=== PATIENT | female | born 1950 | race Caucasian/White ===

== ENCOUNTER 2017-11-30 19:10 | Emergency (ER) | payer MEDICARE, OTHER ==
[2017-11-30] MEDS ORDERED: ASPIRIN 81 MG TABLET, CHEWABLE PO ONE (20:10)
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
[2017-11-30] MEDS ORDERED: LIDOCAINE 5% (700 MG) TRANSDERMAL ADH..PATCH TP ONE (20:21)
[2017-11-30 20:41] LABS: ABSOLUTE BASOPHILS # (AUTO) 0.1 10^3/uL (0.0-0.2); ABSOLUTE EOSINOPHILS # (AUTO) 0.6 10^3/uL (0.0-0.6); ABSOLUTE LYMPHOCYTES (AUTO) 2.7 10^3/uL (0.5-4.7); BASOPHILS % (AUTO) 0.7 % (0-2); EOSINOPHILS % (AUTO) 5.4 % (0-6); HEMATOCRIT 40.3 % (36.0-47.0); HEMOGLOBIN 13.5 g/dL (12.0-15.5); LYMPHOCYTES % (AUTO) 23.5 % (13-45); MEAN CORPUSCULAR HEMOGLOBIN 31.1 pg (27.0-33.4); MEAN CORPUSCULAR HGB CONC 33.6 g/dL (32.0-36.0); MEAN CORPUSCULAR VOLUME 93 fl (80-97); MONOCYTES % (AUTO) 8.6 % (3-13); PLATELET COUNT 280 10^3/uL (150-450); RED BLOOD COUNT 4.35 10^6/uL (3.72-5.28); RED CELL DISTRIBUTION WIDTH 13.9 % (11.5-14.0); SEGMENTED NEUTROPHILS % (AUTO) 61.8 % (42-78); TOTAL CELLS COUNTED % (AUTO) 100 %; WHITE BLOOD COUNT 11.3 10^3/uL (4.0-10.5)
--- NOTE | 2017-11-30 20:54 | RADIOLOGY REPORT (SQ) ---
EXAM DESCRIPTION: CHEST SINGLE VIEW COMPLETED DATE/TIME: 11/30/2017 8:42 pm REASON FOR STUDY: chest wall pain COMPARISON: None. EXAM PARAMETERS: NUMBER OF VIEWS: One view. TECHNIQUE: Single frontal radiographic view of the chest acquired. RADIATION DOSE: NA LIMITATIONS: Suboptimal exposure. FINDINGS: LUNGS AND PLEURA: No opacities, masses or pneumothorax. No pleural effusion. MEDIASTINUM AND HILAR STRUCTURES: No masses. Contour normal. HEART AND VASCULAR STRUCTURES: Heart normal in size. Normal vasculature. BONES: No acute findings. HARDWARE: None in the chest. OTHER: No other significant finding. IMPRESSION: NO ACUTE RADIOGRAPHIC FINDING IN THE CHEST. TECHNICAL DOCUMENTATION: JOB ID: [id number] [employer]- All Rights Reserved Reading location - IP/workstation name: [email or web address]
[2017-11-30 20:59] LABS: INTERNATIONAL RATION (INR) 0.88; PROTHROMBIN TIME 12.6 SEC (11.4-15.4)
[2017-11-30 21:04] LABS: ALANINE AMINOTRANSFERASE 31 U/L (9-52); ALBUMIN 4.1 g/dL (3.5-5.0); ALKALINE PHOSPHATASE 104 U/L (38-126); ANION GAP 9 (5-19); ASPARTATE AMINO TRANSFERASE 23 U/L (14-36); BILIRUBIN,DIRECT 0.1 mg/dL (0.0-0.4); BILIRUBIN,TOTAL 0.2 mg/dL (0.2-1.3); BLOOD UREA NITROGEN 16 mg/dL (7-20); CALCIUM 9.4 mg/dL (8.4-10.2); CARBON DIOXIDE 31 mmol/L (22-30); CHLORIDE 100 mmol/L (98-107); CREATINE KINASE 65 U/L (30-135); GLUCOSE 95 mg/dL (75-110); SODIUM 139.8 mmol/L (137-145); TOTAL PROTEIN 6.4 g/dL (6.3-8.2)
[2017-11-30 21:16] LABS: CREATINE KINASE MB 0.65 ng/mL (<4.55)
[2017-11-30 21:17] LABS: TROPONIN I < 0.012 ng/mL
--- NOTE | 2017-11-30 22:02 | EKG REPORT ---
SEVERITY:- NORMAL ECG - SINUS RHYTHM : Confirmed by: Dov Ramos MD 30-Nov-2017 22:01:47
--- NOTE | 2017-11-30 22:20 | RADIOLOGY REPORT (SQ) ---
EXAM DESCRIPTION: CTA CHEST COMPLETED DATE/TIME: 11/30/2017 9:54 pm REASON FOR STUDY: chest pain, worse with inspiration, r/o PE COMPARISON: 11/30/2017 TECHNIQUE: CT scan of the chest performed using helical scanning technique with dynamic intravenous contrast injection. Images reviewed with lung, soft tissue and bone windows. Reconstructed coronal and sagittal MPR images reviewed. Additional 3 dimensional post-processing performed to develop Maximal Intensity Projection images ([place] P). All images stored on PACS. All CT scanners at this facility use dose modulation, iterative reconstruction, and/or weight based d osing when appropriate to reduce radiation dose to as low as reasonably achievable (ALARA). [facility]: Dose Right [facility]: CareDose [facility]: Dose Right [facility]: Teradose 4D [facility]: [employer] CONTRAST TYPE AND DOSE: contrast/concentration: Isovue 370.00 mg/ml; Total Contrast Delivered: 81.0 ml; Total Saline Delivered: 110.0 ml Contrast bolus optimized for the pulmonary arteries. Not diagnostic for the aorta. RENAL FUNCTION: BUN 16; creatinine 0.89 RADIATION DOSE: CT Rad equipment meets quality standard of care and radiation dose reduction techniq ues were employed. CTDIvol: 13.2 - 34.5 mGy. DLP: 1388 mGy-cm. . LIMITATIONS: None. FINDINGS: LUNGS AND PLEURA: Bibasilar atelectasis. No masses, infiltrates, pneumothorax. No pleura l effusions, calcifications. AORTA AND GREAT VESSELS: No aneurysm. Contrast bolus not optimized for the aorta. HEART: No pericardial effusion. Moderate to marked coronary artery calcifications. PULMONARY ARTERIES: No emboli visualized in the main pulmonary arteries or the segmental branches. HILAR AND MEDIASTINAL STRUCTURES: No identified masses or abnormal nodes. HARDWARE: None in the chest. UPPER ABDOMEN: No significant findings. Limited exam. THYROID AND OTHER SOFT TISSUES: No masses. No adenopathy. BONES: No acute or significant finding. 3D MIPS: Confirm above findings. OTHER: No other significant finding. IMPRESSION: NORMAL CTA OF THE CHEST. NO PULMONARY EMBOLI. COMMENT: Quality ID # [id number]: Final reports with documentation of one or more dose reduction techniques (e.g., Automated exposure control, adjustment of the mA and/or kV according to patient size, use of iterative reconstruction technique) TECHNICAL DOCUMENTATION: JOB ID: [id number]- All Rights Reserved Reading location - IP/workstation name: [email or web address]
[2017-11-30] MEDS ORDERED: ACETAMINOPHEN 325 MG TABLET PO ONE (22:38)
[2017-11-30 22:58] VITALS: BP 150/76
== END 2017-11-30 22:57 | disposition home or self-care (01) ==
LOC: ER 19:10
DX: R07.89 Other chest pain (principal); J98.11 Atelectasis; R05 Cough; R09.89 Other specified symptoms and signs involving the circulatory and respiratory systems; I10 Essential (primary) hypertension; I25.2 Old myocardial infarction; Z95.5 Presence of coronary angioplasty implant and graft; J45.909 Unspecified asthma, uncomplicated; Z88.5 Allergy status to narcotic agent; Z88.8 Allergy status to other drugs, medicaments and biological substances
CPT/HCPCS: 93005; 99285; 36415; 82553; 82550; 85025; 85610; 80053; 84484; 71045; 71275; 93010; A9270 ×2

== ENCOUNTER 2018-06-08 12:15 | Emergency (ER) | payer MEDICARE, OTHER ==
[2018-06-08] MEDS ORDERED: ACETAMINOPHEN 325 MG TABLET PO ONE (13:28)
--- NOTE | 2018-06-08 13:29 | ER Document Report ---
HPI - HPI Patient complains to provider of: Low back pain Onset/Duration: Persistent Quality of pain: Achy Pain Level: 5 Context: Patient states that she got into a bathtub 2 weeks ago in which it was a clawfoot bathtub and the feet came off. Patient states that the bathtub fell to the floor and she fell in the tub and felt a pop in her lower back. Patient did see her primary doctor for this issue 4 days ago but she has had persistent pain and wanted to be reevaluated. Patient denies any radiculopathy or paresthesia. Patient states that her pain is worse in the morning and at night when she attempts to sleep. Patient states through the day after she has been up and moving about her pain is manageable with [id number] medications. Associated Symptoms: Other - Low back pain. denies: Fever Exacerbated by: Movement Relieved by: Denies Similar symptoms previously: No Recently seen / treated by doctor: Yes - ROS ROS below otherwise negative: Yes Systems Reviewed and Negative: Yes All other systems reviewed and negative - CONSTITUTIONAL Constitutional: DENIES: Fever - NEURO Neurology: DENIES: Headache, Weakness - GASTROINTESTINAL Gastrointestinal: DENIES: Patient vomiting - MUSCULOSKELETAL Musculoskeletal: REPORTS: Back Pain. DENIES: Extremity pain - DERM Skin Color: Normal Skin Problems: None Past Medical History - General Information source: Patient - Social History Smoking Status: Never Smoker Family History: Reviewed & Not Pertinent Patient has suicidal ideation: No Patient has homicidal ideation: No - Past Medical History Cardiac Medical History: Reports: Hx Congestive Heart Failure, Hx Hypertension Pulmonary Medical History: Reports: Hx Asthma Renal/ Medical History: Denies: Hx Peritoneal Dialysis Past Surgical History: Reports: Hx Cardiac Surgery - Stent, Hx Gynecologic Surgery - opherectomy, ectopic , Hx Orthopedic Surgery - left knee Vertical Provider Document - CONSTITUTIONAL Agree With Documented VS: Yes Exam Limitations: No Limitations General Appearance: WD/WN, No Apparent Distress Notes: PHYSICAL EXAMINATION: GENERAL: Well-appearing, well-nourished and in no acute distress. HEAD: Atraumatic, normocephalic. EYES: sclera clear, anicteric, conjunctiva are normal. ENT: nares patent, Moist mucous membranes. NECK: Normal range of motion, supple no lymphadenopathy LUNGS: respirations unlabored HEART: Regular rate and rhythm without murmurs EXTREMITIES: Normal range of motion, no pitting or edema. No cyanosis. Gait normal, pt ambulates without difficulty BACK: Lumbar paraspinal tenderness, no midline tenderness, no deformities or step-offs. No CVA tenderness. NEUROLOGICAL: Cranial nerves grossly intact. Normal speech, normal gait. No saddle anesthesia. No foot drop PSYCH: Normal mood, normal affect. SKIN: Warm, Dry, normal turgor, erythematous rash to sacral area in a plaque- like pattern - INFECTION CONTROL TRAVEL OUTSIDE OF THE [place] IN LAST 30 DAYS: No Course - Re-evaluation Re-evalutation: 06/08/18 14:55 The patient presents with low back pain without signs of spinal cord compression , cauda equina syndrome, infection, aneurysm, or other serious etiology. The patient is neurologically intact. Given the extremely risk of these diagnoses further testing and evaluation for these possibilities does not appear to be indicated at this time. Patient has been instructed to return if the symptoms worsen or change in any way. - Vital Signs Vital signs: Temp Pulse Resp BP Pulse Ox 98.8 F 75 14 168/73 H 97 06/08/18 12:20 06/08/18 12:20 06/08/18 12:20 06/08/18 12:20 06/08/18 12:20 - Diagnostic Test Radiology reviewed: Reports reviewed Discharge - Discharge Clinical Impression: Low back pain Qualifiers: Chronicity: unspecified Back pain laterality: unspecified Sciatica presence: unspecified whether sciatica present Qualified Code(s): M54.5 - Low back pain Condition: Stable Disposition: HOME, SELF-CARE Instructions: Ice Packs ([facility]), Low Back Pain ([facility]), Ultram ([facility]) Additional Instructions: Return immediately for any new or worsening symptoms Followup with your primary care provider, call tomorrow to make a followup appointment Prescriptions: Tramadol HCl [Ultram 50 mg Tablet] 50 mg PO ASDIR PRN #20 tablet PRN Reason: Referrals: CHENTE CRUMP MD [NO LOCAL MD] - Follow up as needed
--- NOTE | 2018-06-08 14:20 | RADIOLOGY REPORT (SQ) ---
EXAM DESCRIPTION: PELVIS AP COMPLETED DATE/TIME: 06/08/2018 2:08 pm REASON FOR STUDY: fall, low back, pelvic pain COMPARISON: Lumbar spine films same date NUMBER OF VIEWS: One view TECHNIQUE: AP Pelvis LIMITATIONS: None. FINDINGS: MINERALIZATION: Normal. HIPS: No acute fracture or dislocation. No worrisome bone lesions. PELVIS AND SACRUM: No acute fracture or dislocation. No worrisome bone lesions. PUBIS AND ISCHIUM: No acute fracture. LOWER LUMBAR SPINE: Bilateral facet arthropathy at L4-5 and L5-S1 SOFT TISSUES: No findings. OTHER: No other significant finding. IMPRESSION: No acute bony findings in the pelvis. TECHNICAL DOCUMENTATION: JOB ID: [id number] [employer]- All Rights Reserved Reading location - IP/workstation name: [email or web address]
--- NOTE | 2018-06-08 14:21 | RADIOLOGY REPORT (SQ) ---
EXAM DESCRIPTION: L SPINE WHOLE COMPLETED DATE/TIME: 06/08/2018 2:08 pm REASON FOR STUDY: fall, low back, pelvic pain COMPARISON: AP pelvis same date NUMBER OF VIEWS: Five views including obliques. TECHNIQUE: AP, lateral, oblique, and sacral radiographic images acquired of the lumbar spine. LIMITATIONS: None. FINDINGS: MINERALIZATION: Normal. SEGMENTATION: Normal. No transitional anatomy. ALIGNMENT: Grade 1 anterolisthesis of L5 over S1, chronic in appearance VERTEBRAE: Maintained height. No fracture or worrisome bone lesion. DISCS: High-grade disc space loss of height at L5-S1 POSTERIOR ELEMENTS: Bilateral spondylolysis at L5. Bulky bilateral facet arthropathy at L3-4, L4-5, and L5-S1 HARDWARE: Clips right upper quadrant post cholecystectomy PARASPINAL SOFT TISSUES: Normal. PELVIS: Not in the field of view. SI joints unremarkable. OTHER: No other significant finding. IMPRESSION: Advanced degenerative changes at L5-S1 with bilateral spondylolysis, grade 1 listhesis, and disc space loss of height. Lower lumbar facet arthropathy from L3-4 through L5-S1 TECHNICAL DOCUMENTATION: JOB ID: [id number] [employer]- All Rights Reserved Reading location - IP/workstation name: [email or web address]
[2018-06-08 15:03] VITALS: BP 137/93
== END 2018-06-08 15:03 | disposition home or self-care (01) ==
LOC: ER 12:15
DX: I50.9 Heart failure, unspecified (principal); I11.0 Hypertensive heart disease with heart failure
CPT/HCPCS: 99283; 72110; 72170; A9270

== ENCOUNTER → 2018-06-13 | Outpatient (CLI) | payer MEDICARE, OTHER ==
--- NOTE | 2018-06-13 16:33 | RADIOLOGY REPORT (SQ) ---
EXAM DESCRIPTION: CT LUMBAR SPINE WITHOUT COMPLETED DATE/TIME: 06/13/2018 3:59 pm REASON FOR STUDY: LOW BACK PAIN M54.5 LOW BACK PAIN M43.07 SPONDYLOLYSIS, LUMBOSACRAL REGION M47.8 17 SPONDYLS W/O MYELOPATHY OR RADICULOPATHY, LUMBOSACR COMPARISON: Lumbar spine films 06/08/2018 TECHNIQUE: Axial images acquired through the lumbar spine without intravenous contrast. Images revi ewed with lung, soft tissue and bone windows. Reconstructed coronal and sagittal MPR images reviewed . All images stored on PACS. All CT scanners at this facility use dose modulation, iterative reconstruction, and/or weight based d osing when appropriate to reduce radiation dose to as low as reasonably achievable (ALARA). [facility]: Dose Right [facility]: CareDose [facility]: Dose Right [facility]: Teradose 4D [facility]: [employer] RADIATION DOSE: CT Rad equipment meets quality standard of care and radiation dose reduction techniq ues were employed. CTDIvol: 28.6 mGy. DLP: 840 mGy-cm. mGy. LIMITATIONS: None. FINDINGS: SEGMENTATION: Normal. No transitional anatomy. ALIGNMENT: 25% anterolisthesis of L5 over S1 VERTEBRAL BODIES: 25% upper endplate compression at L4, likely chronic given the upper endplate bony sclerosis DISCS: The T11-12 level is unremarkable. At T12-L1, minimal posterior disc bulging is present withou t significant central or foraminal encroachment. At L1-2, mild diffuse posterior disc bulge and bony spurring and mild facet and ligament hypertrophy cause borderline central canal narrowing. Mild bilateral inferior foraminal narrowing without exitin g L1 nerve root impingement. At L2-3, mild posterior disc bulging and moderate bilateral facet and ligament hypertrophy causes bor derline central canal narrowing. There is mild bilateral inferior foraminal narrowing without exitin g L2 nerve root impingement. At L3-4, broad diffuse posterior disc bulge is present with moderate bilateral facet and ligament hyp ertrophy. Mild central canal stenosis with flattening of the thecal sac into a triangular shape. Mi ld to moderate right and mild left foraminal narrowing without definite exiting L3 nerve root impinge ment. At L4-5, mild posterior disc bulging and mild facet and ligament hypertrophy are present without cent ral stenosis. Mild bilateral foraminal narrowing without exiting L4 nerve root impingement. At L5-S1 there is bilateral spondylolysis and 25% anterolisthesis of L5 over S1. No central stenosis . Marked right foraminal narrowing with effacement of the fat around the exiting right L5 nerve root . [id number]-[id number] left L5-S1 foraminal narrowing with partial effacement of the fat around the ex iting left L5 nerve root. PEDICLES, TRANSVERSE PROCESSES: Bilateral L5 spondylolysis. Multilevel facet arthropathy FACETS, POSTERIOR ELEMENTS: Multilevel facet arthropathy. HARDWARE: None in the spine. VISUALIZED RIBS: No fractures. SOFT TISSUES: No significant or acute finding in adjacent soft tissues. OTHER: No other significant finding. IMPRESSION: Subacute to chronic appearing upper endplate compression at L4 Bilateral spondylolysis at L5 with grade 1 anterolisthesis of L5 over S1. Significant bilateral fora deshawn narrowing at this level right greater than left TECHNICAL DOCUMENTATION: JOB ID: [id number] Quality ID # [id number]: Final reports with documentation of one or more dose reduction techniques (e.g., Au tomated exposure control, adjustment of the mA and/or kV according to patient size, use of iterative reconstruction technique) 2010 [employer]- All Rights Reserved Reading location - IP/workstation name: [email or web address]
== END ==
LOC: RAD 15:42
PROVIDERS: ATTEND Family Medicine Geriatric Medicine
DX: M54.5 Low back pain (principal); M43.07 Spondylolysis, lumbosacral region; M47.817 Spondylosis without myelopathy or radiculopathy, lumbosacral region
CPT/HCPCS: 72131

== ENCOUNTER → 2018-08-15 | Outpatient (CLI) | payer MEDICARE, OTHER ==
[2018-08-15 11:59] LABS: ABSOLUTE BASOPHILS # (AUTO) 0.1 10^3/uL (0.0-0.2); ABSOLUTE EOSINOPHILS # (AUTO) 0.6 10^3/uL (0.0-0.6); ABSOLUTE LYMPHOCYTES (AUTO) 2.3 10^3/uL (0.5-4.7); ABSOLUTE MONOCYTES (AUTO) 0.5 10^3/uL (0.1-1.4); ABSOLUTE NEUT (AUTO) 3.2 10^3/uL (1.7-8.2); BASOPHILS % (AUTO) 1.1 % (0-2); EOSINOPHILS % (AUTO) 9.4 % (0-6); HEMATOCRIT 41.3 % (36.0-47.0); HEMOGLOBIN 14.2 g/dL (12.0-15.5); LYMPHOCYTES % (AUTO) 34.1 % (13-45); MEAN CORPUSCULAR HEMOGLOBIN 32.3 pg (27.0-33.4); MEAN CORPUSCULAR HGB CONC 34.3 g/dL (32.0-36.0); MEAN CORPUSCULAR VOLUME 94 fl (80-97); MONOCYTES % (AUTO) 7.4 % (3-13); PLATELET COUNT 276 10^3/uL (150-450); RED BLOOD COUNT 4.38 10^6/uL (3.72-5.28); RED CELL DISTRIBUTION WIDTH 13.9 % (11.5-14.0); TOTAL CELLS COUNTED % (AUTO) 100 %; WHITE BLOOD COUNT 6.7 10^3/uL (4.0-10.5)
[2018-08-15 12:21] LABS: ALANINE AMINOTRANSFERASE 18 U/L (9-52); ALBUMIN 3.9 g/dL (3.5-5.0); ALKALINE PHOSPHATASE 100 U/L (38-126); ANION GAP 11 (5-19); ASPARTATE AMINO TRANSFERASE 22 U/L (14-36); BILIRUBIN,DIRECT 0.1 mg/dL (0.0-0.4); BILIRUBIN,TOTAL 0.6 mg/dL (0.2-1.3); BLOOD UREA NITROGEN 18 mg/dL (7-20); CALCIUM 9.5 mg/dL (8.4-10.2); CARBON DIOXIDE 29 mmol/L (22-30); CHLORIDE 101 mmol/L (98-107); CHOLESTEROL 241.55 mg/dL (0-200); GLUCOSE 100 mg/dL (75-110); SODIUM 140.8 mmol/L (137-145); TOTAL PROTEIN 6.5 g/dL (6.3-8.2); TRIGLYCERIDES 138 mg/dL (<150)
[2018-08-15 12:32] LABS: DIRECT LDL 164 mg/dL (<100)
== END ==
LOC: OD 10:59
PROVIDERS: ATTEND Family Medicine Geriatric Medicine
DX: E03.9 Hypothyroidism, unspecified (principal); E78.5 Hyperlipidemia, unspecified; E87.6 Hypokalemia; M54.5 Low back pain; Z79.899 Other long term (current) drug therapy
CPT/HCPCS: 36415; 80053; 80061; 83735; 84443; 85025; 86141

== ENCOUNTER → 2018-08-28 | Outpatient (CLI) | payer MEDICARE, OTHER ==
--- NOTE | 2018-08-28 11:26 | WOMENS IMAGING REPORT ---
EXAM DESCRIPTION: 3D SCREENING MAMMO BILAT COMPLETED DATE/TIME: 08/28/2018 11:02 am REASON FOR STUDY: SCREENING MAMMO Z12.31 ENCNTR SCREEN MAMMOGRAM FOR MALIGNANT NEOPLASM OF AFIA COMPARISON: None. TECHNIQUE: Standard craniocaudal and mediolateral oblique views of each breast recorded using digita l acquisition and breast tomosynthesis. LIMITATIONS: None. FINDINGS: No masses, calcifications or architectural distortion. No areas of suspicion. Read with the assistance of CAD. .[facility] - R2 Cenova Version 1.3 .[facility] Imaging - R2 Cenova Version 1.3 .[facility] - R2 Cenova Version 2.4 .[facility] [place] R2 Cenova Version 2.4 .[facility] - R2 Buff Wheel Fabricator Version 9.2 IMPRESSION: NORMAL MAMMOGRAM. BIRADS 1. BREAST DENSITY: b. There are scattered areas of fibroglandular density. BIRAD: 1 NEGATIVE RECOMMENDATION: ROUTINE SCREENING COMMENT: The patient has been notified of the results by letter per SA requirements. Additional no tification policies are in place for contacting patient with suspicious or incomplete findings. Quality ID #225: The [place] [employer] recommends an annual screening mammogram for women aged 40 years or over. This facility utilizes a reminder system to ensure that all patients receive reminder letters, and/or direct phone calls for appointments. This includes reminders for routine scr eening mammograms, diagnostic mammograms, or other Breast Imaging Interventions when appropriate. Th is patient will be placed in the appropriate reminder system. The [place] [employer] (ACR) has developed recommendations for screening MRI of the breast s in certain patient populations, to be used in conjunction with mammography. Breast MRI surveillanc e may be appropriate for women with more than 20% lifetime risk of developing breast cancer as deter mined by genetic testing, significant family history of the disease, or history of mantle radiation f or Hodgkins Disease. ACR Practice Guidelines 2008. DBT Technology DBT is a type of tomographic mammography. With conventional mammography, overlapping breast tissue ma y make lesions difficult to detect, even with good compression. DBT uses an x-ray tube that rotates a round the breast, taking images at different angles. These images are then combined to create thin sl ices of the breast that the radiologist can view as a 3D reconstruction. The [employer] unit can perform full-field digital mammograms (2D imaging); or DBT (3D imaging); or both, in a combination mode that quickly performs both the mammogram and the tomosynthesis scan while the breast is still compressed. PQRS 6045F: Fluoroscopic imaging is not utilized for breast tomosynthesis. TECHNICAL DOCUMENTATION: FINDING NUMBER: (1) ASSESSMENT: (1) JOB ID: [id number] [employer]- All Rights Reserved Reading location - IP/workstation name: [facility]
== END ==
LOC: WI 10:04
PROVIDERS: ATTEND Family Medicine
DX: Z12.31 Encounter for screening mammogram for malignant neoplasm of breast (principal)
CPT/HCPCS: 77063; 77067

== ENCOUNTER → 2018-12-12 | Outpatient (CLI) | payer MEDICARE, OTHER ==
[2018-12-12 11:25] LABS: ABSOLUTE BASOPHILS # (AUTO) 0.1 10^3/uL (0.0-0.2); ABSOLUTE EOSINOPHILS # (AUTO) 0.7 10^3/uL (0.0-0.6); ABSOLUTE LYMPHOCYTES (AUTO) 2.5 10^3/uL (0.5-4.7); ABSOLUTE MONOCYTES (AUTO) 0.6 10^3/uL (0.1-1.4); ABSOLUTE NEUT (AUTO) 3.2 10^3/uL (1.7-8.2); BASOPHILS % (AUTO) 1.2 % (0-2); EOSINOPHILS % (AUTO) 9.9 % (0-6); HEMATOCRIT 42.6 % (36.0-47.0); HEMOGLOBIN 14.4 g/dL (12.0-15.5); LYMPHOCYTES % (AUTO) 35.3 % (13-45); MEAN CORPUSCULAR HEMOGLOBIN 31.7 pg (27.0-33.4); MEAN CORPUSCULAR HGB CONC 33.7 g/dL (32.0-36.0); MEAN CORPUSCULAR VOLUME 94 fl (80-97); MONOCYTES % (AUTO) 7.9 % (3-13); PLATELET COUNT 290 10^3/uL (150-450); RED BLOOD COUNT 4.54 10^6/uL (3.72-5.28); RED CELL DISTRIBUTION WIDTH 13.3 % (11.5-14.0); SEGMENTED NEUTROPHILS % (AUTO) 45.7 % (42-78); TOTAL CELLS COUNTED % (AUTO) 100 %; WHITE BLOOD COUNT 7.1 10^3/uL (4.0-10.5)
[2018-12-12 11:43] LABS: ANION GAP 9 (5-19); BLOOD UREA NITROGEN 15 mg/dL (7-20); CALCIUM 9.6 mg/dL (8.4-10.2); CARBON DIOXIDE 30 mmol/L (22-30); CHLORIDE 100 mmol/L (98-107); GLUCOSE 110 mg/dL (75-110); POTASSIUM 3.9 mmol/L (3.6-5.0); SODIUM 139.1 mmol/L (137-145)
== END ==
LOC: LAB 10:57
PROVIDERS: ATTEND Physician Assistant
DX: Z01.812 Encounter for preprocedural laboratory examination (principal); Z96.652 Presence of left artificial knee joint
CPT/HCPCS: 36415; 80048; 85025

== ENCOUNTER → 2019-06-02 | Outpatient (CLI) | payer MEDICARE, OTHER ==
--- NOTE | 2019-06-02 14:11 | RADIOLOGY REPORT (SQ) ---
EXAM DESCRIPTION: MRI HEAD COMBO COMPLETED DATE/TIME: 06/02/2019 1:22 pm REASON FOR STUDY: G45.9 TRANSIENT CEREBRAL ISCHEMIC ATTACK, UNSPECIFIED G45.9 TRANSIENT CEREBRAL IS CHEMIC ATTACK, UNSPECIFIED COMPARISON: None. TECHNIQUE: Multiplanar imaging includes noncontrasted T1, T2, FLAIR, Diffusion with ADC map and post gadolinium contrast T1 sequences. Images stored on PACS. CONTRAST TYPE AND DOSE: 15 mL Dotarem RENAL FUNCTION: Not indicated. ACR Type II contrast agent associated with few, if any, unconfounded cases of NSF LIMITATIONS: None. FINDINGS: ANATOMY: No anomalies. Normal vascular flow voids. Pituitary fossa normal. CSF SPACES: Atrophy-induced prominence of CSF spaces and ventricles. There is an enhancing extra-axi al dural-based mass in the floor of the right anterior fossa, inferior to the right frontal lobe. AP measurement 1.5 cm, transverse measurement 1.3 cm, and craniocaudal measurement 8 mm. CEREBRUM: High-signal intensity lesions scattered throughout the white matter on FLAIR imaging with d istribution suggesting chronic micro-vascular ischemic change. No evidence of hemorrhage, mass, extra axial fluid collection or acute ischemic change. No enhancing lesions. POSTERIOR FOSSA: No signal alteration. No hemorrhage. No edema, masses, or mass effect. Internal aruna tory canals, cerebello-pontine angles, mastoids normal. No enhancing lesions. ORBITS: No masses. Globes normal. PARANASAL SINUSES: No fluid levels. Mucosa normal. DIFFUSION: Normal. No evidence of recent infarct. OTHER: No other significant finding. IMPRESSION: 1. ENHANCING EXTRA-AXIAL DURAL-BASED MASS IN THE FLOOR OF THE RIGHT ANTERIOR FOSSA, INFERIOR TO THE R IGHT FRONTAL LOBE, CONSISTENT WITH A MENINGIOMA. 2. ATROPHY AND CHRONIC MICRO-VASCULAR ISCHEMIC CHANGES. No other significant findings. EVIDENCE OF ACUTE STROKE: NO. TECHNICAL DOCUMENTATION: JOB ID: [id number] [employer]- All Rights Reserved Reading location - IP/workstation name: [email or web address]
--- NOTE | 2019-06-02 16:33 | RADIOLOGY REPORT (SQ) ---
EXAM DESCRIPTION: CAROTID DOPPLER COMPLETED DATE/TIME: 06/02/2019 4:18 pm REASON FOR STUDY: TIA G45.9 TRANSIENT CEREBRAL ISCHEMIC ATTACK, UNSPECIFIED COMPARISON: None. TECHNIQUE: Grayscale ultrasound, Doppler velocity and spectra, and color Doppler images acquired of the extra-cranial carotid and vertebral arteries. Images stored on PACS. LIMITATIONS: None. FINDINGS: RIGHT CAROTID CCA Velocities: Within normal limits. ICA Velocities Peak systolic 0.93 m/s. End diastolic 0.38 m/s. Proximal ICA/CCA peak systolic ratio 1.5. Focal shadowing plaque in the carotid bulb and proximal internal carotid artery. LEFT CAROTID CCA Velocities: Within normal limits. ICA Velocities Peak systolic 0.79 m/s. End diastolic 0.28 m/s. Proximal ICA/CCA peak systolic ratio 1.0. Spectra normal. No significant plaque. VERTEBRAL ARTERIES: Antegrade flow. Normal waveforms. SUBCLAVIAN ARTERIES: No finding. OTHER: No other significant finding. IMPRESSION: NO HEMODYNAMICALLY SIGNIFICANT STENOSIS. COMMENT: Quality ID #195: Velocity criteria are extrapolated from the diameter data as defined by t he Society of Radiologists in Ultrasound Consensus Conference. Radiology 2003: 229; 340-346. TECHNICAL DOCUMENTATION: JOB ID: [id number] [employer]- All Rights Reserved Reading location - IP/workstation name: [email or web address]
--- NOTE | 2019-06-03 20:45 | XCELERA REPORT ---
[address] [address] Transthoracic Echocardiogram Report Name: MARIA DE JESUS BELL Age: 68 yrs Gender: Female : 1950 Patient Status: Outpatient Patient Location: Study Date: 06/02/2019 11:29 AM Height: 64 in Weight: 205 lb BSA: 2.0 m2 Procedure: A two-dimensional transthoracic echocardiogram with color flow and Doppler was performed. Study Quality: Fair. Reason For Study: TIA History: tia. Ordering Physician: PATRICIA CRUMP Performed By: Pat Euceda Interpretation Summary There is no obvious cardiac source of embolus noted on this transthoracic echocardiogram. Follow-up with a NAHEED is suggested if cardiac source is still suspected. The left ventricle is normal in size. There is normal left ventricular wall thickness. The left ventricular ejection fraction is within normal limits. LV EF is 70% Doppler measurements suggest impaired left ventricular relaxation, which is associated with grade I/IV or mild diastolic dysfunction The left ventricular wall motion is normal. There is no thrombus. No defenite ASD ,VSD,or PFO seen. The right ventricle is grossly normal size. The right ventricle is not well visualized secondary to technical limitations The right atrium is normal. The left atrial size is normal. There is no evidence of mitral valve prolapse. There is no vegetation seen on the mitral valve. There is no mitral valve stenosis. There is a trace amount of mitral regurgitation There is no aortic valvular vegetation. There is no aortic valve stenosis There is aortic sclerosis without aortic stenosis. There is no LVOT obstruction. There is no tricuspid stenosis. There is a trace amount of tricuspid regurgitation There is mild pulmonary hypertension by echo RVSP is 31 to 36 mm of Hg , with RA mean of 5 to 10. There is no pulmonic valvular stenosis. There is no pulmonic valvular regurgitation. The aortic root is normal size. The inferior vena cava appeared normal and decreased > 50% with respiration (RAP 5-10 mmHg) There is no pericardial effusion. There is no obvious cardiac source of embolus noted on this transthoracic echocardiogram. Follow-up with a NAHEED is suggested if cardiac source is still suspected MMode/2D Measurements & Calculations RVDd: 2.6 cm LVIDd: 4.3 cm FS: 43.7 % Ao root diam: 2.7 cm IVSd: 1.0 cm LVIDs: 2.4 cm EDV(Teich): 82.9 ml Ao root area: 5.6 cm2 LVPWd: 0.98 cm ESV(Teich): 20.6 ml LA dimension: 3.8 cm EF(Teich): 75.2 % Doppler Measurements & Calculations MV E max varinder: MV P1/2t max varinder: Ao V2 max: AI max varinder: 69.1 cm/sec 68.1 cm/sec 152.2 cm/sec 494.7 cm/sec MV A max varinder: MV P1/2t: 75.2 msec Ao max PG: AI max P.2 cm/sec MVA(P1/2t): 2.9 cm2 9.3 mmHg 97.9 mmHg MV E/A: 0.68 MV dec slope: AI dec slope: 231.9 cm/sec2 265.2 cm/sec2 AI P1/2t: MV dec time: 624.9 msec 0.25 sec LV V1 max PG: PA V2 max: PI end-d varinder: TR max varinder: 8.3 mmHg 89.8 cm/sec 92.3 cm/sec 253.0 cm/sec LV V1 max: PA max P.2 mmHg TR max P.1 cm/sec 25.6 mmHg AV P1/2t-pr_phl: MV P1/2t-pr_phl: 624.9 msec 75.2 msec Left Ventricle The left ventricle is normal in size. There is normal left ventricular wall thickness. The left ventricular ejection fraction is within normal limits. LV EF is 70%. Doppler measurements suggest impaired left ventricular relaxation, which is associated with grade I/IV or mild diastolic dysfunction. The left ventricular wall motion is normal. There is no thrombus. No defenite ASD ,VSD,or PFO seen. Right Ventricle The right ventricle is grossly normal size. The right ventricle is not well visualized secondary to technical limitations. Atria The right atrium is normal. The left atrial size is normal. Mitral Valve There is no evidence of mitral valve prolapse. There is no vegetation seen on the mitral valve. There is no mitral valve stenosis. There is a trace amount of mitral regurgitation. Aortic Valve There is no aortic valvular vegetation. There is no aortic valve stenosis. There is no LVOT obstruction. There is aortic sclerosis without aortic stenosis. There is a mild amount of aortic regurgitation. Tricuspid Valve There is no tricuspid stenosis. There is a trace amount of tricuspid regurgitation. There is mild pulmonary hypertension by echo. RVSP is 31 to 36 mm of Hg , with RA mean of 5 to 10. Pulmonic Valve There is no pulmonic valvular stenosis. There is no pulmonic valvular regurgitation. Great Vessels The aortic root is normal size. The inferior vena cava appeared normal and decreased > 50% with respiration (RAP 5-10 mmHg). Effusions There is no pericardial effusion. : PATRICIA CRUMP Lakshmi
== END ==
LOC: SP 11:10
PROVIDERS: ATTEND Family Medicine
DX: G45.9 Transient cerebral ischemic attack, unspecified (principal)
CPT/HCPCS: 93306; 93880; 70553; A9576

== ENCOUNTER 2019-07-03 17:46 | Emergency (ER) | payer MEDICARE, OTHER ==
[2019-07-03] MEDS ORDERED: NORMAL SALINE 1000 ML 1,000 ML IV ONE (17:56)
--- NOTE | 2019-07-03 18:04 | EKG REPORT ---
SEVERITY:- ABNORMAL ECG - SINUS RHYTHM NONSPECIFIC T ABNORMALITIES, ANT-LAT LEADS : Confirmed by: Dov Ramos MD 03-Jul-2019 18:03:27
[2019-07-03 18:09] LABS: ABSOLUTE BASOPHILS # (AUTO) 0.1 10^3/uL (0.0-0.2); ABSOLUTE EOSINOPHILS # (AUTO) 0.7 10^3/uL (0.0-0.6); ABSOLUTE LYMPHOCYTES (AUTO) 3.9 10^3/uL (0.5-4.7); ABSOLUTE MONOCYTES (AUTO) 0.9 10^3/uL (0.1-1.4); ABSOLUTE NEUT (AUTO) 7.2 10^3/uL (1.7-8.2); BASOPHILS % (AUTO) 0.6 % (0-2); EOSINOPHILS % (AUTO) 5.2 % (0-6); HEMATOCRIT 46.6 % (36.0-47.0); HEMOGLOBIN 15.3 g/dL (12.0-15.5); LYMPHOCYTES % (AUTO) 30.5 % (13-45); MEAN CORPUSCULAR HEMOGLOBIN 31.1 pg (27.0-33.4); MEAN CORPUSCULAR HGB CONC 32.8 g/dL (32.0-36.0); MEAN CORPUSCULAR VOLUME 95 fl (80-97); MONOCYTES % (AUTO) 7.3 % (3-13); PLATELET COUNT 260 10^3/uL (150-450); RED BLOOD COUNT 4.91 10^6/uL (3.72-5.28); SEGMENTED NEUTROPHILS % (AUTO) 56.4 % (42-78); TOTAL CELLS COUNTED % (AUTO) 100 %; WHITE BLOOD COUNT 12.8 10^3/uL (4.0-10.5)
[2019-07-03 18:14] LABS: INTERNATIONAL RATION (INR) 1.06; PARTIAL THROMBOPLASTIN TIME 24.1 SEC (23.5-35.8); PROTHROMBIN TIME 13.8 SEC (11.4-15.4)
--- NOTE | 2019-07-03 18:31 | RADIOLOGY REPORT (SQ) ---
EXAM DESCRIPTION: CT HEAD WITHOUT COMPLETED DATE/TIME: 07/03/2019 6:09 pm REASON FOR STUDY: AMS COMPARISON: 06/02/2019 MRI TECHNIQUE: Axial images acquired through the brain without intravenous contrast. Images reviewed wit h bone, brain and subdural windows. Images stored on PACS. All CT scanners at this facility use dose modulation, iterative reconstruction, and/or weight based d osing when appropriate to reduce radiation dose to as low as reasonably achievable (ALARA). [facility]: Dose Right [facility]: CareDose [facility]: Dose Right [facility]: Teradose 4D [facility]: Smart Xiaoying RADIATION DOSE: CT Rad equipment meets quality standard of care and radiation dose reduction techniq ues were employed. CTDIvol: 53.2 mGy. DLP: 1097 mGy-cm.. LIMITATIONS: None. FINDINGS: VENTRICLES: Normal size and contour. CEREBRUM: Meningioma seen on the MRI is poorly visualized. No hemorrhage. No midline shift. Stable a ppearance of the white matter. No evidence for acute large vessel infarction. CEREBELLUM: No masses. No hemorrhage. No alteration of density. No evidence for acute infarction. EXTRA-AXIAL SPACES: No fluid collections. ORBITS AND GLOBE: No intra- or extraconal masses. Normal contour of globe without masses. CALVARIUM: No fracture. PARANASAL SINUSES: No fluid or mucosal thickening. SOFT TISSUES: No mass or hematoma. OTHER: No other significant finding. IMPRESSION: NO ACUTE INTRACRANIAL FINDINGS. EVIDENCE OF ACUTE STROKE: NO. TECHNICAL DOCUMENTATION: JOB ID: [id number] [place]-72 Quality ID # [id number]: Final reports with documentation of one or more dose reduction techniques (e.g., Au tomated exposure control, adjustment of the mA and/or kV according to patient size, use of iterative reconstruction technique) 2010 [employer]- All Rights Reserved Reading location - IP/workstation name: [employer]
[2019-07-03] MEDS ORDERED: METOCLOPRAMIDE HCL INJ/PF 10 MG/2 ML SDV IV ONE (18:33)
--- NOTE | 2019-07-03 18:34 | RADIOLOGY REPORT (SQ) ---
EXAM DESCRIPTION: CHEST SINGLE VIEW COMPLETED DATE/TIME: 07/03/2019 6:13 pm REASON FOR STUDY: CP COMPARISON: 11/30/2017 TECHNIQUE: Single frontal radiographic view of the chest acquired. NUMBER OF VIEWS: One view. LIMITATIONS: None. FINDINGS: LUNGS AND PLEURA: No pneumothorax. No consolidation or pleural effusion. MEDIASTINUM AND HILAR STRUCTURES: Stable. HEART AND VASCULAR STRUCTURES: Stable. BONES: No acute findings. HARDWARE: None in the chest. OTHER: No other significant finding. IMPRESSION: NO ACUTE FINDINGS. TECHNICAL DOCUMENTATION: JOB ID: [id number] [place]-72 2010 [employer]- All Rights Reserved Reading location - IP/workstation name: [email or web address]
[2019-07-03 18:42] LABS: ALBUMIN 3.5 g/dL (3.5-5.0); ALKALINE PHOSPHATASE 85 U/L (38-126); ANION GAP 9 (5-19); ASPARTATE AMINO TRANSFERASE 25 U/L (14-36); BILIRUBIN,DIRECT 0.1 mg/dL (0.0-0.4); BILIRUBIN,TOTAL 0.6 mg/dL (0.2-1.3); BLOOD UREA NITROGEN 14 mg/dL (7-20); CALCIUM 8.3 mg/dL (8.4-10.2); CARBON DIOXIDE 24 mmol/L (22-30); CHLORIDE 104 mmol/L (98-107); CREATINE KINASE 89 U/L (30-135); GLUCOSE 126 mg/dL (75-110)
[2019-07-03 18:52] LABS: CREATINE KINASE MB 1.03 ng/mL (<4.55); POTASSIUM 2.9 mmol/L (3.6-5.0)
[2019-07-03 18:58] LABS: TROPONIN I < 0.012 ng/mL
[2019-07-03] MEDS: POTASSI CL 20 MEQ/50 ML RIDER 20 MEQ/50 ML RTUPB IV SCH ×2 (21:13→23:28)
[2019-07-03] MEDS ORDERED: POTASSIUM CHLORIDE 10 MEQ CAPSULE.ER PO ONE (23:42)
[2019-07-03 23:48] VITALS: BP 126/55
[2019-07-04 00:05] LABS: PHOSPHORUS 2.1 mg/dL (2.5-4.5)
[2019-07-04 01:29] LABS: ANION GAP 5 (5-19); BLOOD UREA NITROGEN 11 mg/dL (7-20); CALCIUM 7.6 mg/dL (8.4-10.2); CARBON DIOXIDE 27 mmol/L (22-30); CHLORIDE 106 mmol/L (98-107); GLUCOSE 139 mg/dL (75-110); POTASSIUM 3.5 mmol/L (3.6-5.0)
[2019-07-04 01:43] LABS: APPEARANCE,URINE SLIGHTLY-CLOUDY; BILIRUBIN,URINE NEGATIVE (NEGATIVE); COLOR,URINE YELLOW; GLUCOSE, URINE NEGATIVE (NEGATIVE); KETONES,URINE NEGATIVE (NEGATIVE); LEUKOCYTE ESTERASE,URINE LARGE (NEGATIVE); NITRITE,URINE NEGATIVE (NEGATIVE); PROTEIN,URINE NEGATIVE (NEGATIVE); URINE SPECIFIC GRAVITY 1.014; UROBILINOGEN,URINE NEGATIVE mg/dL (<2.0)
[2019-07-04] MEDS ORDERED: CALCIUM GLUCONATE 1000 MG/10 ML INJ IV ONE (01:45)
[2019-07-04] MEDS ORDERED: ACETAMINOPHEN 325 MG TABLET PO ONE (02:10)
[2019-07-04] MEDS: MAGNESIUM SULFATE/D5W 1 GM/100 ML RTUPB IV SCH ×2 (02:14→02:20)
[2019-07-04] MEDS: POTASSI CL 20 MEQ/50 ML RIDER 20 MEQ/50 ML RTUPB IV SCH (02:32)
--- NOTE | 2019-07-04 02:45 | ER Document Report ---
Entered by WADE POTTS SCRIBE 07/03/191951 Acting as scribe for:LENA MOREL DO ED General - General Chief Complaint: Probable Seizure Stated Complaint: DIZZINESS Time Seen by Provider: 07/03/19 17:54 Mode of Arrival: Medic Information source: Emergency Med Personnel Cannot obtain history due to: Altered mental status Notes: 68-year-old female who presents to the emergency department today for complaints of hypotension with associated loss of consciousness today while selling plasma at the [facility] plasma center, [facility] location in [place]. EMS states that when they arrived on scene staff at the plasma center informed them that this was the patient's first time donating plasma. They report that the patient's eyes rolled in the back of her head, began having "tonic posturing", and eventually lost consciousness. EMS states when they arrived the patient had a blood pressure of 60/palp. EMS reports in route the patient started complaining of nausea and vomiting. On arrival here the patient is thrashing a round in the bed, altered, unable to provide any meaningful history. The patient's sister arrived sometime after the patient so additional history was obtained. Sister states that she encouraged her sister that donating plasma at her age with her medical conditions was very TRAVEL OUTSIDE OF THE [place] IN LAST 30 DAYS: No - Related Data Allergies/Adverse Reactions: codeine Allergy (Verified 11/30/17 19:32) tamoxifen Allergy (Verified 11/30/17 19:32) Past Medical History - General Information source: Emergency Med Personnel, [facility] Records Cannot obtain history due to: Altered mental status - Social History Smoking Status: Unknown if Ever Smoked Cigarette use (# per day): No Frequency of alcohol use: None Drug Abuse: None Lives with: Family Family History: Reviewed & Not Pertinent Patient has suicidal ideation: No Patient has homicidal ideation: No - Past Medical History Cardiac Medical History: Reports: Hx Congestive Heart Failure, Hx Hypertension Pulmonary Medical History: Reports: Hx Asthma Past Surgical History: Reports: Hx Cardiac Surgery - Stent, Hx Gynecologic Surgery - opherectomy, ectopic , Hx Orthopedic Surgery - left knee Review of Systems - Review of Systems -: Yes ROS unobtainable due to patient's medical condition Physical Exam - Vital signs Vitals: Resp Pulse Ox 30 H 99 07/03/19 17:51 07/03/19 17:51 Interpretation: Hypotensive, Tachypneic - General In distress: Moderate - HEENT Head: Normocephalic, Atraumatic Conjunctiva: Normal Cornea: Normal Eyelashes: Normal Pupils: PERRL Mucous membranes: Dry - Respiratory Respiratory status: Tachypnea Breath sounds: Normal - Cardiovascular Rhythm: Regular - Abdominal Inspection: Normal Tenderness: Nontender - Back Back: Normal - Extremities General upper extremity: Normal inspection, Normal ROM General lower extremity: Normal inspection, Normal ROM - Neurological Cognition: Confused Orientation: Disoriented to place, Disoriented to time [place] Coma Scale Eye Opening: Spontaneous [place] Coma Scale Verbal: Confused [place] Coma Scale Motor: Obeys Commands [place] Coma Scale Total: 14 Speech: Normal Cranial nerves: Normal Additional motor exam normals: Equal caul puller - Psychological Associated symptoms: Anxious - Skin Skin Temperature: Cold Skin Color: Pale Course - Re-evaluation Re-evalutation: 07/04/19 02:13 Patient is a 68-year-old female who was brought in after donating plasma. Patient apparently did not tell staff there about her cardiac history or concern for TIA in the past. Patient was brought in by EMS getting fluids with a blood pressure 60/40. She is initially confused, hypothermic. Patient is received fluids, potassium replacement, magnesium, and calcium. She is feeling better and would prefer to be discharged home. Ambulates easily. No respiratory distress. Of note, urine with bacteria. Patient with no dysuria or frequency. States that sample was contaminated. Will send culture the patient can follow-up on. Stable for discharge. She is completely back to her cognitive baseline and neurovascularly intact. - Vital Signs Vital signs: Temp Pulse Resp BP Pulse Ox 98.8 F 23 H 126/55 H 91 L 07/03/19 23:01 07/03/19 23:01 07/03/19 23:01 07/03/19 23:01 - Laboratory Result Diagrams: 07/03/19 17:55 07/04/19 00:55 Laboratory results interpreted by me: 07/03/19 07/03/19 07/03/19 17:50 17:55 17:55 WBC 12.8 H RDW 15.0 H Absolute Eos (auto) 0.7 H Potassium 2.9 L* Glucose 126 H POC Glucose 128 H Lactic Acid Calcium 8.3 L Phosphorus Magnesium Total Protein 6.0 L Urine Blood Ur Leukocyte Esterase 07/03/19 07/03/19 07/04/19 17:55 20:28 00:55 WBC RDW Absolute Eos (auto) Potassium 3.5 L Glucose 139 H POC Glucose Lactic Acid 2.3 H Calcium 7.6 L Phosphorus 2.1 L Magnesium 1.3 L Total Protein Urine Blood Ur Leukocyte Esterase 07/04/19 01:20 WBC RDW Absolute Eos (auto) Potassium Glucose POC Glucose Lactic Acid Calcium Phosphorus Magnesium Total Protein Urine Blood SMALL H Ur Leukocyte Esterase LARGE H - Diagnostic Test Radiology reviewed: Reports reviewed - EKG Interpretation by Me EKG shows normal: Sinus rhythm Rate: Normal When compared to previous EKG there are: No significant change Critical Care Note - Critical Care Note Total time excluding time spent on procedures (mins): 90 - Evaluation and management of hypotension, repeat evaluations, replacement of potassium, magnesium, calcium, counseling of patient and family Discharge - Discharge Clinical Impression: Hypomagnesemia, Hypokalemia, Hypocalcemia Hypotension Qualifiers: Hypotension type: unspecified hypotension type Qualified Code(s): I95.9 - Hypotension, unspecified Condition: Stable Disposition: HOME, SELF-CARE Instructions: Hypotension ([facility]), Hypokalemia ([facility]) Additional Instructions: Please do not donate plasma ever again. Forms: Return to Work I personally performed the services described in the documentation, reviewed and edited the documentation which was dictated to the scribe in my presence, and it accurately records my words and actions.
== END 2019-07-04 03:26 | disposition home or self-care (01) ==
LOC: ER 17:46
DX: I95.9 Hypotension, unspecified (principal); E87.6 Hypokalemia; E83.42 Hypomagnesemia; E83.51 Hypocalcemia; T68.XXXA Hypothermia, initial encounter; R06.82 Tachypnea, not elsewhere classified; R55 Syncope and collapse; R41.0 Disorientation, unspecified; J45.909 Unspecified asthma, uncomplicated; Z88.5 Allergy status to narcotic agent; Z88.8 Allergy status to other drugs, medicaments and biological substances; Z86.79 Personal history of other diseases of the circulatory system
CPT/HCPCS: 93005; 36415; 87040; 87086; 82553; 82962; 82550; 83690; 83735; 84100; 84443; 85025; 85610; 85730; 87088; 80048; 80053; 81001; 84484; 83605; 71045; 70450; 93010; A9270 ×2; J0610; J2765; J3475; J3480; J7030; 87186; 96361; 96365; 96366; 96367; 96375; 99291; 99292

== ENCOUNTER → 2019-07-09 | Outpatient (CLI) | payer MEDICARE, OTHER ==
--- NOTE | 2019-07-09 19:55 | RADIOLOGY REPORT (SQ) ---
EXAM DESCRIPTION: MRA HEAD WITHOUT COMPLETED DATE/TIME: 07/09/2019 6:59 pm REASON FOR STUDY: I67.82 CEREBRAL ISCHEMIA I67.82 CEREBRAL ISCHEMIA COMPARISON: None. TECHNIQUE: Axial 3-D kdrx-fe-dulnpo acquisition imaging performed through the brain in the area of t he [place] of [place]. Images reformatted using 3-D MIPS. LIMITATIONS: None. FINDINGS: SOURCE IMAGES: No unexpected findings on source images. No large masses. 3-D MIP: No aneurysm. No occlusions. No significant stenosis. OTHER: No other significant finding. IMPRESSION: NORMAL MRA OF THE [place] OF [place]. TECHNICAL DOCUMENTATION: JOB ID: [id number] [employer]- All Rights Reserved Reading location - IP/workstation name: [email or web address]
== END ==
LOC: RAD 15:22
PROVIDERS: ATTEND Neurological Surgery
DX: I67.82 Cerebral ischemia (principal)
CPT/HCPCS: 70544

== ENCOUNTER → 2019-10-08 | Outpatient (CLI) | payer MEDICARE, OTHER ==
--- NOTE | 2019-10-08 12:10 | RADIOLOGY REPORT (SQ) ---
EXAM DESCRIPTION: MRI HEAD WITHOUT COMPLETED DATE/TIME: 10/08/2019 9:46 am REASON FOR STUDY: FACIAL DROOP R29.810 FACIAL WEAKNESS COMPARISON: CT brain 07/03/2019 MRA exam [place] of [place] 07/09/2019 TECHNIQUE: Multiplanar imaging includes non-contrasted T1, T2, FLAIR, and diffusion with ADC map seq uences. Images stored on PACS. LIMITATIONS: None. FINDINGS: ANATOMY: No anomalies. Normal vascular flow voids. Pituitary fossa normal. CSF SPACES: Normal in size and contour. No hemorrhage. Benign prominence left frontal subarachnoid s pace on coronal image 12, normal variant CEREBRUM: No MR evidence of acute large territory ischemic change, you had intracranial hemorrhage, m ass effect, or midline shift. Moderate bifrontal and biparietal chronic small vessel ischemic change in the hemispheric white matte r. POSTERIOR FOSSA: No signal alteration. No hemorrhage. No edema, masses or mass effect. Internal aruna tory canals, cerebello-pontine angles, mastoids normal. DIFFUSION IMAGING: Negative for acute or sub-acute infarction. ORBITS: No masses. Globes normal. PARANASAL SINUSES: No fluid levels. Mucosa normal. OTHER: No other significant finding. IMPRESSION: Moderate white matter disease. No acute findings EVIDENCE OF ACUTE STROKE: NO. TECHNICAL DOCUMENTATION: JOB ID: [id number] [employer]- All Rights Reserved Reading location - IP/workstation name: [email or web address]
== END ==
LOC: RAD 09:03
PROVIDERS: ATTEND Family Medicine
DX: R29.810 Facial weakness (principal)
CPT/HCPCS: 70551

== ENCOUNTER → 2020-02-22 | Outpatient (CLI) | payer MEDICARE ==
[2020-02-22 10:23] LABS: ALBUMIN 4.2 g/dL (3.5-5.0); ALKALINE PHOSPHATASE 86 U/L (38-126); ASPARTATE AMINO TRANSFERASE 27 U/L (14-36); BILIRUBIN,TOTAL 0.5 mg/dL (0.2-1.3); BLOOD UREA NITROGEN 19 mg/dL (7-20); CALCIUM 9.7 mg/dL (8.4-10.2); CHOLESTEROL 238.52 mg/dL (0-200); GLUCOSE 114 mg/dL (75-110); POTASSIUM 4.2 mmol/L (3.6-5.0); TOTAL PROTEIN 6.8 g/dL (6.3-8.2); TRIGLYCERIDES 172 mg/dL (<150)
[2020-02-22 10:28] LABS: CARBON DIOXIDE 33 mmol/L (22-30); CHLORIDE 101 mmol/L (98-107)
[2020-02-22 10:33] LABS: ANION GAP 4 (5-19); VLDL CHOLESTEROL 34.4 mg/dL (10-31)
[2020-02-22 10:34] LABS: DIRECT LDL 145 mg/dL (<100)
== END ==
LOC: OD 09:16
PROVIDERS: ATTEND Family Medicine
DX: E78.00 Pure hypercholesterolemia, unspecified (principal); E03.9 Hypothyroidism, unspecified
CPT/HCPCS: 36415; 80053; 80061; 84443

== ENCOUNTER → 2020-04-19 | Outpatient (CLI) | payer MEDICARE, OTHER ==
--- NOTE | 2020-04-20 12:21 | WOMENS IMAGING REPORT ---
EXAM DESCRIPTION: 3D SCREENING MAMMO BILAT IMAGES COMPLETED DATE/TIME: 04/19/2020 2:30 pm REASON FOR STUDY: Z12.31 ENCOUNTER FOR SCREENING MAMMOGRAM FOR MALIGNANT NEOPLASM OF BREAST Z12.31 ENCNTR SCREEN MAMMOGRAM FOR MALIGNANT NEOPLASM OF AFIA COMPARISON: 08/28/2018 EXAM PARAMETERS: Views: Standard craniocaudal and mediolateral oblique views of each breast recorded using digital acquisition and breast tomosynthesis. Read with the assistance of CAD. .[facility] - R2 Hand Marker Version 9.2 LIMITATIONS: None. FINDINGS: No suspicious masses, suspicious calcifications or architectural distortion. No areas of c oncern. IMPRESSION: NEGATIVE MAMMOGRAM. BIRADS 1. BREAST DENSITY: a. The breasts are almost entirely fatty. BIRAD: ASSESSMENT: 1 NEGATIVE RECOMMENDATION: ROUTINE SCREENING COMMENT: The patient has been notified of the results by letter per MQSA requirements. Additional no tification policies are in place for contacting patient with suspicious or incomplete findings. Quality ID #225: The [place] [employer] recommends an annual screening mammogram for women aged 40 years or over. This facility utilizes a reminder system to ensure that all patients receive reminder letters, and/or direct phone calls for appointments. This includes reminders for routine scr eening mammograms, diagnostic mammograms, or other Breast Imaging Interventions when appropriate. Th is patient will be placed in the appropriate reminder system. TECHNICAL DOCUMENTATION: FINDING NUMBER: (1) ASSESSMENT: (1) JOB ID: [id number] 2010 [employer]- All Rights Reserved Reading location - IP/workstation name: [email or web address]
== END ==
LOC: WI 13:52
PROVIDERS: ATTEND Family Medicine
DX: Z12.31 Encounter for screening mammogram for malignant neoplasm of breast (principal)
CPT/HCPCS: 77063; 77067

== ENCOUNTER → 2020-04-20 | Outpatient (CLI) | payer MEDICARE, OTHER ==
--- NOTE | 2020-04-20 14:58 | RADIOLOGY REPORT (SQ) ---
EXAM DESCRIPTION: MRI HEAD COMBO IMAGES COMPLETED DATE/TIME: 04/20/2020 2:03 pm REASON FOR STUDY: MENINGIOMA (D32.9) D32.9 BENIGN NEOPLASM OF MENINGES, UNSPECIFIED COMPARISON: 10/08/2019 and 06/02/2019 MR imaging TECHNIQUE: Multiplanar imaging includes noncontrasted T1, T2, FLAIR, diffusion with ADC map and post gadolinium contrast T1 sequences. Images stored on PACS. CONTRAST TYPE AND DOSE: 20 mL Prohance. RENAL FUNCTION: Not indicated. ACR Type II contrast agent associated with few, if any, unconfounded cases of NSF LIMITATIONS: None. FINDINGS: ANATOMY: No anomalies. Normal vascular flow voids. Pituitary fossa normal. CSF SPACES: Within the floor of the right frontal fossa there is a 1.2 x 1.4 x 1.6 cm T1/T2 hypointen se mass with a dural tail demonstrating homogeneous post gadolinium enhancement, consistent with a me ningioma. This does not appear to be increased in size relative to 06/02/2019 MR imaging when measure d in the same plane across examinations. CEREBRUM: Scattered foci of T2 prolongation seen throughout the periventricular and subcortical white matter are consistent with sequela of chronic microvascular ischemic changes. Steiner- white matter di fferentiation and signal are otherwise normal. No masses. No hemorrhage. No abnormal post gadolini um enhancement. POSTERIOR FOSSA: No signal alteration. No hemorrhage. No edema, masses, or mass effect. Internal aruna tory canals, cerebellopontine angles, mastoids normal. No enhancing lesions. No abnormal enhancement post contrast. DIFFUSION IMAGING: Negative for acute or subacute infarction. ORBITS: No masses. Globes normal. PARANASAL SINUSES: Incidental note is made of a diminutive appearing right maxillary sinus, likely on the basis of chronic sinusitis. No acute findings. OTHER: No other significant finding. IMPRESSION: Stable MR appearance of a 1.2 x 1.4 x 1.6 cm right frontal fossa meningioma. Stable amy kground of chronic microvascular and age-related involutional changes. EVIDENCE OF ACUTE STROKE: NO. TECHNICAL DOCUMENTATION: JOB ID: [id number] 2010 [employer]- All Rights Reserved Reading location - IP/workstation name: [email or web address]
== END ==
LOC: RAD 12:41
PROVIDERS: ATTEND Neurological Surgery
DX: D32.9 Benign neoplasm of meninges, unspecified (principal)
CPT/HCPCS: 82565; 70553; A9576